=== PATIENT | female | born 2000 | race Caucasian/White ===

== ENCOUNTER 2020-10-04 07:29 | Emergency (ER) | payer BC, MEDICAID ==
[~2020-10-04] VITALS: Ht 162.6 cm; Wt 86.4 kg
[2020-10-04 07:42] VITALS: BP 115/87
[2020-10-04] MEDS ORDERED: PROC-8 PO (08:44)
== END 2020-10-04 08:55 | disposition home or self-care (01) ==
LOC: ER 07:29
DX: B94.8 Sequelae of other specified infectious and parasitic diseases (principal); R42 Dizziness and giddiness; R00.2 Palpitations; Z79.899 Other long term (current) drug therapy
CPT/HCPCS: 93005; 99283

== ENCOUNTER 2025-01-17 13:59 | Emergency (ER) | payer MEDICAID ==
[~2025-01-17] VITALS: Ht 162.6 cm; Wt 108.5 kg
[~2025-01-17 13:59] MED LIST: PROC-8 PO
[2025-01-17 14:43] LABS: LEUKOCYTE ESTERASE ,URINE NEGATIVE (Neg); NITRITES, URINE NEGATIVE (Neg); OCCULT BLOOD,URINE NEGATIVE (Neg)
[2025-01-17 14:44] LABS: URINE HCG NEGATIVE (NEG)
[2025-01-17 14:47] LABS: UA COLLECTION TYPE NON-SPECIFIED
[2025-01-17 14:49] LABS: MEAN PLATELET VOLUME 7.8 FL (7.4-10.4); RED CELL DISTRIBUTION WIDTH 13.2 % (11.5-14.5)
[2025-01-17 14:49] LABS: MUCUS STRANDS MODERATE /LPF (Neg); SQUAMOUS EPITHELIAL CELL,UR MANY /LPF (FEW)
[2025-01-17 15:04] LABS: CREATININE 0.73 MG/DL (0.40-0.90); TOTAL CARBON DIOXIDE 24.6 MMOL/L (24-32); eCRCL 102 ML/MIN; eGFR > 90 ML/MIN
--- NOTE | 2025-01-17 16:52 | RADIOLOGY REPORT ---
US ULTRASOUND PELVIS W/ORWO DPLX Indication: 24 years old, Female; right pelvic pain. Comparison: None Technique: Ultrasound examination of the female pelvis was performed transabdominally and transvaginally. Color and pulsed wave Doppler imaging was also utilized to evaluate ovarian blood flow. Findings: Uterus: 7.3 cm Endometrium: 3 [address]UD is in [address]. Right ovary: 2.9 cm Left ovary: 2.4 cm Doppler Color Flow: Suboptimal venous waveforms of the right ovary likely technical. Preserved arterial waveforms. Preserved venous waveform on the left. Subcentimeter bilateral ovarian follicles. Small volume free fluid in the pelvis. IMPRESSION: NO ACUTE SONOGRAPHIC FINDINGS IN THE PELVIS.
--- NOTE | 2025-01-17 17:12 | Physician Documentation ---
History of Present Illness Chief Complaint: Abdominal Pain Stated Complaint: ABD PAIN Time Seen by MD: 14:34 Primary Medical Doctor: Wilda Source: patient Mode of Arrival: POV, Ambulatory Exam Limitations: no limitations HPI 24-year-old female who is here for right lower quadrant abdominal pain which started an hour prior to arrival. She states she felt completely normal this morning and then suddenly she started having this abdominal pain. She is about to start her menstrual cycle but no history of any ovarian cysts sore gynecological issues. She has never had any abdominal surgeries before. She denies nausea or vomiting she states I am very hungry right now. She states her last bowel movement was this morning. She feels like the pain is trapped gas. no pre arrival treatment. No fever, chills, chest pain, shortness of breath, nausea, vomiting, diarrhea, constipation. Medication Reconciliation Allergies: Coded Allergies: No Known Allergies (Unverified , 01/17/25) Scheduled Prochlorperazine Maleate (Compazine), 1 TAB PO Q6H Past Medical History Past Medical History: No Pertinent History Past Surgical History: no surgical history Alcohol Use: None Drug Use: none Lives with: Family Lives In: Home Occupation: student Review of Systems All Other Systems at this time: Reviewed and Negative Physical Exam Vital Signs: Temperature: 98.2, Heart Rate: 98, Respiratory Rate: 16, BP: 127/91, Pulse Oximetry: 100, Weight: 108.500 Oxygen Flow Rate: 0 Physical Exam GENERAL: Alert, no acute distress. HEENT: NCAT, EOMI, PERRL, normal oropharynx, moist oral mucosa. NECK: Supple, trachea midline. CARDIAC: Regular rate and rhythm, no murmurs, rubs, or gallops. Equal distal pulses. No lower extremity edema, cap refill less than 2 seconds. RESPIRATORY: Equal breath sounds, clear to auscultation bilaterally, no respiratory distress. GASTROINTESTINAL: Normoactive bowel sounds x4 quadrants, non distended, soft, TTP IN RLQ, No guarding or rebound. NEGATIVE JUMP TEST. MUSCULOSKELETAL: Normal range of motion, nontender, no swelling. Normal gait. NEUROLOGICAL: Awake, alert, and oriented x 3. SKIN: Warm/dry, no pallor, no rash. PSYCH: Alert and appropriate. Affect congruent with mood. Speech is clear. Good eye contact. Progress Progress Note US ULTRASOUND PELVIS W/ORWO DPLX Indication: 24 years old, Female; right pelvic pain. Comparison: None Technique: Ultrasound examination of the female pelvis was performed transabdominally and transvaginally. Color and pulsed wave Doppler imaging was also utilized to evaluate ovarian blood flow. Findings: Uterus: 7.3 cm Endometrium: 3 [address]UD is in [address]. Right ovary: 2.9 cm Left ovary: 2.4 cm Doppler Color Flow: Suboptimal venous waveforms of the right ovary likely technical. Preserved arterial waveforms. Preserved venous waveform on the left. Subcentimeter bilateral ovarian follicles. Small volume free fluid in the pelvis. IMPRESSION: NO ACUTE SONOGRAPHIC FINDINGS IN THE PELVIS. Results/Orders Reviewed/noted all lab results: Yes Results/Orders Orders - MARCIE BARROS T PA Ultrasound Pelvis W/Orwo Dplx (01/17/25 15:44) Completed Orders - BETTY BARROSSY T PA Ultrasound Pelvis W/Orwo Dplx (01/17/25 15:44) Vital Signs 01/17/25 01/17/25 14:11 14:36 Temp 98.2 Pulse 98 Resp 16 16 B/P (MAP) 127/91 Pulse Ox 100 O2 Flow Rate 0 Laboratory Tests Test 01/17/25 14:30 01/17/25 14:39 Urine Specimen Description Non-specified Urine Color Yellow Urine Clarity Slightly cloudy Urine pH 5.5 Urine Specific [place] 1.025 Urine Protein Negative Urine Glucose (UA) Negative Urine Ketones Trace H Urine Occult Blood Negative Urine Nitrite Negative Urine Bilirubin Negative Urine Urobilinogen 0.2 Urine Leukocyte Esterase Negative Urine RBC 3-10 Urine WBC 0-4 Urine Squamous Epithelial Cells Many Urine Bacteria Few Urine Mucus Moderate Urine Culture Indicated Not ind Volume Urine Centrifuged 10 ml Urine HCG, Qualitative Negative Urine Comment White Blood Count 14.2 H Red Blood Count 5.03 Hemoglobin 14.6 Hematocrit 42.9 Mean Corpuscular Volume 85.3 Mean Corpuscular Hemoglobin 29.1 Mean Corpuscular Hemoglobin Concent 34.1 Red Cell Distribution Width 13.2 Platelet Count 413 Mean Platelet Volume 7.8 Neutrophils (%) (Auto) 81.8 H Lymphocytes (%) (Auto) 12.9 L Monocytes (%) (Auto) 4.4 Eosinophils (%) (Auto) 0.6 Basophils (%) (Auto) 0.3 Neutrophils # (Auto) 11.6 H Lymphocytes # (Auto) 1.8 Monocytes # (Auto) 0.6 Eosinophils # (Auto) 0.1 Basophils # (Auto) 0.0 CBC Comment Sodium Level 137 Potassium Level 4.1 Chloride Level 103 Carbon Dioxide Level 24.6 Anion Gap 9 Blood Urea Nitrogen 12 Creatinine 0.73 Estimated GFR/1.73 m2 > 90 BUN/Creatinine Ratio 16.4 Glucose Level 92 Calcium Level 9.0 Total Bilirubin 0.4 Aspartate Amino Transf (AST/SGOT) 12 Alanine Aminotransferase (ALT/SGPT) 20 Alkaline Phosphatase 70 Total Protein 8.0 Albumin 3.9 Globulin 4.1 Albumin/Globulin Ratio 1.0 L Lipase 27 Chemistry Comments Re-Evaluation Re-Evaluation : Re-Evaluation Time: 17:11 Re-Evaluation: Improved Progress PAIN IMPROVED PATIENT REQUESTING DISCHARGE Medical Decision Making Additional information obtaine: N/A Findings N/A Differential Dx:Considerations: Appendicitis, Bowel obstruction, Constipation, Gastritis/PUD, Gastroenteritis, GI hemorrhage, Hernia, Hepatitis, Inflammatory BD, Ischemic bowel, Ovarian cyst/torsion, Pancreatitis, PID, Trauma, intraa bdominal, Urinary obstruction, Urinary tract infection, Urolithiasis Additional Comments WE DISCUSSED GETTING A CT SCAN TO ASSESS FOR APPENDICITIS HOWEVER PATIENT WANTED TO HOLD OFF ON THIS FOR NOW SHE STATED THAT THE PAIN HAD IMPROVED SINCE SHE WAS HERE IN THE ER AND SHE STARTED TO BELIEVE THE PAIN WAS DUE TO GAS. I EXPLAINED THAT SHE DOES HAVE A SLIGHTLY ELEVATED WHITE BLOOD CELL COUNT AND I DISCUSSED THE IMPORTANCE THAT IF THE PAIN DOES NOT RESOLVE OR CERTAINLY IF IT WORSENS TO RETURN TO THE ER RIGHT AWAY. WE DISCUSSED THAT APPENDICITIS IF NOT TREATED IN A TIMELY MANNER CAN TURN INTO SOMETHING THAT CAN EVEN BE LIFE- THREATENING WITH A PERFORATED BOWEL. Departure Time of Disposition: 17:11 Disposition: 01 HOME / SELF CARE / HOMELESS Impression: Primary Impression: Abdominal pain Qualified Codes: R10.31 - Right lower quadrant pain Condition: Stable Discharge Instructions: Abdominal Pain (Nonspecific) Additional Instructions: WE DISCUSSED CT SCAN TODAY; HOWEVER WE ALSO DISCUSSED DISCHARGING YOU AND RETURNING IF PAIN DOES NOT RESOLVE OR WORSENS WHICH WE MUTUALLY AGREED WAS A REASONABLE PLAN. YOUR WHITE COUNT WAS SLIGHTLY HIGH; HOWEVER, YOU HAVE A NEGATIVE JUMP TEST, NO PERITONEAL SIGNS, A GOOD APPETITE, AND NO OTHER RED FLAG SIGNS OR SYMPTOMS Referrals: NO PRIMARY CARE PROVIDER (PCP) Education Educated: Patient Educated regarding: diagnosis, treatment, need for follow up Signature Scribe Signature: X Attestation: MARCIE LEO Jan 17, 2025 17:11
[2025-01-17 17:14] VITALS: BP 120/75; PULSE 80; RESP 16; TEMP 98; O2SAT 98
== END 2025-01-17 17:15 | disposition home or self-care (01) ==
LOC: ER 14:00
DX: R10.31 Right lower quadrant pain (principal)
CPT/HCPCS: 36415; 76830; 76856; 80053; 81001; 81025; 83690; 85025; 93976; 99284